=== PATIENT | male | born 1995 | race Two or more races ===

== ENCOUNTER 2018-11-27 17:27 | Emergency (ER) | payer OTHER ==
[~2018-11-27] VITALS: Ht 182.9 cm; Wt 104.3 kg
[~2018-11-27 17:27] MED LIST: CEPH250SUA PO; DIPH25; RANI150 PO
[2018-11-27 18:17] LABS: BASOPHILS ABSOLUTE AUTO 0.03 K/mm3 (0.00-0.23); BASOPHILS PERCENT AUTO 0 % (0-2); EOSINOPHILS ABSOLUTE AUTO 0.17 K/mm3 (0.00-0.68); EOSINOPHILS PERCENT AUTO 2 % (0-6); Hemoglobin 16.1 g/dL (13.5-17.5); IMMATURE GRAN ABSOLUTE AUTO 0.01 K/mm3 (0.00-0.10); IMMATURE GRAN PERCENT AUTO 0 % (0-1); LYMPHOCYTES ABSOLUTE AUTO 2.09 K/mm3 (0.84-5.20); LYMPHOCYTES PERCENT AUTO 29 % (21-46); MONOCYTES ABSOLUTE AUTO 0.77 K/mm3 (0.16-1.47); MONOCYTES PERCENT AUTO 11 % (4-13); Mean Corpuscular HGB 31.6 pg (26.0-34.0); Mean Corpuscular HGB Conc 32.9 g/dL (31.5-36.5); Mean Corpuscular Volume 96 fL (80-100); Mean Platelet Volume 11.2 fL (9.1-12.4); NEUTROPHILS ABSOLUTE AUTO 4.06 K/mm3 (1.96-9.15); NEUTROPHILS PERCENT AUTO 57 % (41-73); Platelet Count 235 K/mm3 (150-400); RDW Coefficient Variation 12.5 % (11.7-14.2); RDW Standard Deviation 44.5 fL (35.1-46.3); Red Blood Cell Count 5.09 M/mm3 (4.30-5.90); White Blood Cell Count 7.13 K/mm3 (4.00-11.30)
[2018-11-27 18:39] LABS: Alanine Aminotransfer (ALT/SGP 20 U/L (12-78); Albumin, Blood 4.1 g/dL (3.4-5.0); Albumin/Globulin Ratio 1.1 (0.8-1.8); Alk Phos 58 U/L (50-136); Anion Gap 7 mmol/L (6-16); Aspartate Aminotrans (AST/SGOT 15 U/L (12-37); Bilirubin, Total 0.6 mg/dL (0.1-1.0); Blood Urea Nitrogen 16 mg/dL (8-24); Bun/Creatinine Ratio 17.3 (12.0-20.0); CO2, Blood 27 mmol/L (21-32); Calcium, Blood 8.9 mg/dL (8.5-10.1); Chloride, Blood 107 mmol/L (98-108); Creatinine, Blood 0.93 mg/dL (0.60-1.20); Globulin, Blood 3.6 g/dL (2.2-4.0); Glomerular Filtration Rate >60 (60-); Glucose, Blood 87 mg/dL (70-99); Sodium, Blood 141 mmol/L (136-145); Total Protein, Blood 7.7 g/dL (6.4-8.2)
[2018-11-27] MEDS ORDERED: Norco 5-325 Ta1 EACH PO (20:20)
[2018-11-27] MEDS ORDERED: COMPAZINE10 MG PO (20:20)
== END 2018-11-27 20:58 | disposition home or self-care (01) ==
LOC: ER 17:27
PROVIDERS: Physician Assistant
DX: R51 Headache (principal); R11.2 Nausea with vomiting, unspecified
CPT/HCPCS: 36415; 70450; 80053; 85025; 96361; 96374; 99284-25; J1170; J2405; J7030

== ENCOUNTER 2020-12-10 21:47 | Emergency (ER) | payer OTHER ==
[~2020-12-10] VITALS: Ht 185.4 cm; Wt 122.5 kg
[~2020-12-10 21:47] MED LIST changes: +COMPAZINE10 MG PO; +Norco 5-325 Ta1 EACH PO
[2020-12-10] MEDS ORDERED: IBU800 MG PO (22:20)
[2020-12-10] MEDS ORDERED: Cleocin HCl300 MG PO (22:20)
== END 2020-12-10 23:00 | disposition home or self-care (01) ==
LOC: ER 21:47
DX: K02.9 Dental caries, unspecified (principal); Z88.0 Allergy status to penicillin
CPT/HCPCS: 99282; A9270

== ENCOUNTER 2021-05-11 19:16 | Emergency (ER) | payer OTHER ==
[~2021-05-11] VITALS: Ht 185.4 cm; Wt 140.6 kg
[~2021-05-11 19:16] MED LIST changes: +Cleocin HCl300 MG PO; +IBU800 MG PO
== END 2021-05-11 20:15 | disposition home or self-care (01) ==
LOC: ER 19:16
DX: S01.21XA Laceration without foreign body of nose, initial encounter (principal); F17.200 Nicotine dependence, unspecified, uncomplicated; Z23 Encounter for immunization; Z88.0 Allergy status to penicillin; W22.8XXA Striking against or struck by other objects, initial encounter
CPT/HCPCS: 12002; 90471; 90714; 99282-25; A9270

== ENCOUNTER → 2021-11-07 | Outpatient (CLI) | payer OTHER ==
[2021-11-09 03:09] LABS: CHLAMYDIA TRACHOMATIS, NAA Negative (Negative)
== END | disposition home or self-care (01) ==
LOC: LAB SHORT 11:45 → LAB 11:45
PROVIDERS: Physician Assistant
DX: N45.1 Epididymitis (principal)
CPT/HCPCS: 87086; 87491; 87591

== ENCOUNTER 2023-09-14 15:28 | Emergency (ER) | payer OTHER ==
[~2023-09-14] VITALS: Ht 177.8 cm; Wt 146.1 kg
[2023-09-14 15:30] VITALS: BP 148/84
[2023-09-14] MEDS ORDERED: Famotidine 20 MG Tab PO ONE ×2 (15:35→15:45)
[2023-09-14] MEDS ORDERED: DiphenhydrAMINE HCL 25 MG Cap PO ONE (15:35)
[2023-09-14] MEDS ORDERED: Dexamethasone Sod Phos 10 MG/ML 1ML VIAL PO ONE (16:25)
== END 2023-09-14 16:30 | disposition home or self-care (01) ==
LOC: ER 15:28
DX: L27.1 Localized skin eruption due to drugs and medicaments taken internally (principal); J35.8 Other chronic diseases of tonsils and adenoids; T36.1X5A Adverse effect of cephalosporins and other beta-lactam antibiotics, initial encounter
CPT/HCPCS: 87081; 87430; 99283; A9270; J1100

== ENCOUNTER 2024-05-22 11:49 | Emergency (ER) | payer OTHER ==
[~2024-05-22] VITALS: Ht 182.9 cm; Wt 108.9 kg
[2024-05-22 11:57] VITALS: BP 158/96
[2024-05-22] MEDS ORDERED: ALBU90OI INH (15:08)
== END 2024-05-22 15:29 | disposition home or self-care (01) ==
LOC: ER 11:49
DX: J20.8 Acute bronchitis due to other specified organisms (principal); Z88.1 Allergy status to other antibiotic agents; Z88.0 Allergy status to penicillin
CPT/HCPCS: 71046; 87081; 87430; 99283-25

== ENCOUNTER 2024-07-29 01:33 | Emergency (ER) | payer OTHER ==
[~2024-07-29] VITALS: Ht 182.9 cm; Wt 131.5 kg
[~2024-07-29 01:33] MED LIST changes: +ALBU90OI INH
[2024-07-29] MEDS ORDERED: Acetaminophen 500 MG Tab PO ONE (04:45)
[2024-07-29 06:15] VITALS: BP 122/76
== END 2024-07-29 06:25 | disposition home or self-care (01) ==
LOC: ER 01:33
DX: S83.91XA Sprain of unspecified site of right knee, initial encounter (principal); S76.011A Strain of muscle, fascia and tendon of right hip, initial encounter; S86.911A Strain of unspecified muscle(s) and tendon(s) at lower leg level, right leg, initial encounter; X50.1XXA Overexertion from prolonged static or awkward postures, initial encounter; Z68.39 Body mass index [BMI] 39.0-39.9, adult; Z88.0 Allergy status to penicillin; Z88.8 Allergy status to other drugs, medicaments and biological substances
CPT/HCPCS: 73502; 73562-RT; 99283-25; A9270